=== PATIENT | female | born 1985 | race Caucasian/White ===

== ENCOUNTER 2019-01-19 18:22 | Emergency (ER) | payer SELFPAY ==
[~2019-01-19] VITALS: Ht 147.3 cm; Wt 73.0 kg
[2019-01-19 20:45] LABS: CLARITY URINE TURBID (CLEAR); COLOR URINE YELLOW (YELLOW); KETONES URINE 3+ (NEGATIVE); LEUKOCYTE ESTERASE URINE 2+ (NEGATIVE); NITRITE URINE NEGATIVE (NEGATIVE); OCCULT BLOOD URINE 3+ (NEGATIVE); PROTEIN URINE 3+ (NEGATIVE); SPECIFIC GRAVITY URINE 1.043 (1.005-1.030); UROBILINOGEN URINE 0.2 E.U./dL (0.2-1.0)
[2019-01-19] MEDS ORDERED: KETOROLAC 30MG/ML VIAL IV STA (20:46)
[2019-01-19] MEDS ORDERED: SODIUM CHLORIDE 0.9% 1,000 ML IV ONE (21:00)
[2019-01-19] MEDS ORDERED: MORPHINE SULFATE 4 MG/ML CPJ (NOT FOR IM USE) IV ONE (21:00)
[2019-01-19 21:30] LABS: BASOPHILS % 0.3 % (0.0-2.0); EOSINOPHILS % 0.1 % (0.0-5.0); HEMATOCRIT. 43.5 % (36.0-48.0); HEMOGLOBIN. 14.9 g/dL (12.0-16.0); MEAN CORPUSCULAR HEMOGLOBIN 30.5 pg (28.0-32.0); MEAN CORPUSCULAR VOLUME 88.7 fL (81.0-99.0); NEUTROPHILS % 80.6 % (40.0-76.0); PLATELET 230 x1000/uL (130-400); RED BLOOD CELL COUNT 4.91 mill/uL (4.2-5.4); RED CELL DISTRIBUTION WIDTH 13.3 % (11.6-14.6)
[2019-01-19 21:33] LABS: CHLORIDE 104 mEq/L (98-107)
[2019-01-19] MEDS ORDERED: CEFTRIAXONE 1 G PREMIX 50 ML IV ONE (22:15)
[2019-01-19] MEDS ORDERED: IOHEXOL-300 100 ML BOTTLE ONE (23:27)
[2019-01-20] MEDS ORDERED: INSULIN REGULAR (HUMULIN R) UD 100 UNITS/ML SYR IV ONE (00:30)
[2019-01-20] MEDS ORDERED: INSULIN REGULAR (HUMULIN R) 300UNITS/3ML IV NR (01:30)
[2019-01-20 01:36] VITALS: BP 110/69
== END 2019-01-20 01:37 | disposition home or self-care (01) ==
LOC: ER 18:22
DX: R10.31 Right lower quadrant pain (principal); R10.32 Left lower quadrant pain; R30.0 Dysuria; E11.9 Type 2 diabetes mellitus without complications; Z86.73 Personal history of transient ischemic attack (TIA), and cerebral infarction without residual deficits
CPT/HCPCS: 36415; 74177; 80053; 81003; 81025; 82962; 83605; 83690; 85025; 87077; 87086; 87186; 93005; 96365; 96375; 99284; J0696; J1815; J1885; J2270; J7030; Q9967; Z7610

== ENCOUNTER 2019-02-03 20:28 | Emergency (ER) | payer SELFPAY ==
[~2019-02-03] VITALS: Ht 147.3 cm; Wt 73.0 kg
[2019-02-04] MEDS ORDERED: SODIUM CHLORIDE 0.9% 1,000 ML IV ONE (03:18)
[2019-02-04] MEDS ORDERED: MORPHINE SULFATE 2 MG/ML CPJ (NOT FOR IM USE) IV ONE (03:30)
[2019-02-04] MEDS ORDERED: ONDANSETRON HCL 4MG/2ML INJ IV ONE (03:30)
[2019-02-04 03:32] LABS: BASOPHILS % 0.7 % (0.0-2.0); EOSINOPHILS % 0.1 % (0.0-5.0); HEMATOCRIT. 40.9 % (36.0-48.0); HEMOGLOBIN. 14.1 g/dL (12.0-16.0); LYMPHOCYTES % 17.1 % (20.0-50.0); MEAN CORPUSCULAR HEMOGLOBIN 30.3 pg (28.0-32.0); MEAN CORPUSCULAR VOLUME 87.8 fL (81.0-99.0); MEAN PLATELET VOLUME 9.6 fl (7.4-10.4); MONOCYTES % 6.5 % (2.0-8.0); NEUTROPHILS % 75.6 % (40.0-76.0); PLATELET 252 x1000/uL (130-400); RED BLOOD CELL COUNT 4.66 mill/uL (4.2-5.4); RED CELL DISTRIBUTION WIDTH 13.6 % (11.6-14.6)
[2019-02-04 03:38] LABS: CHLORIDE 106 mEq/L (98-107)
[2019-02-04 03:45] LABS: BETA HYDROXYBUTYRATE 1.2 mMol/L (0.0-0.3)
[2019-02-04 03:46] LABS: HCG SCREEN NEGATIVE
[2019-02-04] MEDS ORDERED: MORPHINE SULFATE 4 MG/ML CPJ (NOT FOR IM USE) IV NR (04:00)
[2019-02-04 04:35] LABS: CLARITY URINE TURBID (CLEAR); COLOR URINE YELLOW (YELLOW); KETONES URINE 1+ (NEGATIVE); LEUKOCYTE ESTERASE URINE 2+ (NEGATIVE); NITRITE URINE NEGATIVE (NEGATIVE); OCCULT BLOOD URINE 3+ (NEGATIVE); PH URINE 5.5 (4.5-8.0); PROTEIN URINE 1+ (NEGATIVE); SPECIFIC GRAVITY URINE 1.031 (1.005-1.030); UROBILINOGEN URINE 0.2 E.U./dL (0.2-1.0)
[2019-02-04] MEDS ORDERED: CEFTRIAXONE 1 G PREMIX 50 ML IV ONE (05:15)
[2019-02-04] MEDS ORDERED: INSULIN REGULAR (HUMULIN R) 300UNITS/3ML SUBCUT ONE (06:00)
[2019-02-04] MEDS ORDERED: POTASSIUM CHLORIDE 20MEQ TABLET SR PO ONE (06:00)
[2019-02-04] MEDS ORDERED: KETOROLAC 30MG/ML VIAL IV ONE (06:30)
[2019-02-04 09:34] VITALS: BP 120/78
== END 2019-02-04 09:37 | disposition home or self-care (01) ==
LOC: ER 20:28
DX: N12 Tubulo-interstitial nephritis, not specified as acute or chronic (principal); E11.65 Type 2 diabetes mellitus with hyperglycemia
CPT/HCPCS: 36415; 80053; 81003; 82010; 82962; 83690; 84703; 85025; 85610; 87077; 87086; 87186; 96361; 96365; 96372; 96375; 99283; J0696; J1815; J1885; J2270; J2405; J7030

== ENCOUNTER 2020-01-26 11:35 | Emergency (ER) | payer MEDICAID ==
[~2020-01-26] VITALS: Ht 162.6 cm; Wt 68.2 kg
[2020-01-26] MEDS ORDERED: ACETAMINOPHEN 325MG TABLET PO STA (12:26)
[2020-01-26 12:47] LABS: BASOPHILS % 0.3 % (0.0-2.0); EOSINOPHILS % 0.1 % (0.0-5.0); HEMATOCRIT. 48.9 % (36.0-48.0); HEMOGLOBIN. 17.1 g/dL (12.0-16.0); LYMPHOCYTES % 19.9 % (20.0-50.0); MEAN CORPUSCULAR HEMOGLOBIN 30.6 pg (28.0-32.0); MEAN CORPUSCULAR VOLUME 87.6 fL (81.0-99.0); MEAN PLATELET VOLUME 9.7 fl (7.4-10.4); MONOCYTES % 10.3 % (2.0-8.0); NEUTROPHILS % 69.4 % (40.0-76.0); PLATELET 211 x1000/uL (130-400); RED BLOOD CELL COUNT 5.58 mill/uL (4.2-5.4); RED CELL DISTRIBUTION WIDTH 13.6 % (11.6-14.6)
[2020-01-26 12:48] LABS: CLARITY URINE CLEAR (CLEAR); COLOR URINE YELLOW (YELLOW); KETONES URINE 4+ (NEGATIVE); LEUKOCYTE ESTERASE URINE NEGATIVE (NEGATIVE); NITRITE URINE NEGATIVE (NEGATIVE); OCCULT BLOOD URINE NEGATIVE (NEGATIVE); PH URINE 5.5 (4.5-8.0); PROTEIN URINE 3+ (NEGATIVE); SPECIFIC GRAVITY URINE 1.049 (1.005-1.030)
[2020-01-26 12:53] LABS: CHLORIDE 103 mEq/L (98-107)
[2020-01-26 13:15] LABS: HCG SCREEN NEGATIVE
[2020-01-26] MEDS ORDERED: CEFTRIAXONE 1 G PREMIX 50 ML IV ONE (14:00)
[2020-01-26] MEDS ORDERED: FLUCONAZOLE 100MG TABLET PO ONE (14:00)
[2020-01-26] MEDS ORDERED: KETOROLAC 30MG/ML VIAL IV ONE (14:00)
[2020-01-26] MEDS ORDERED: FLUCONAZOLE 150MG TABLET PO ONE (14:15)
[2020-01-26 15:15] VITALS: BP 115/80
== END 2020-01-26 15:37 | disposition home or self-care (01) ==
LOC: ER 12:10
DX: N39.0 Urinary tract infection, site not specified (principal); B37.9 Candidiasis, unspecified; G43.909 Migraine, unspecified, not intractable, without status migrainosus; G44.89 Other headache syndrome; E11.9 Type 2 diabetes mellitus without complications; R00.0 Tachycardia, unspecified
CPT/HCPCS: 36415; 80053; 81003; 81025; 84703; 85025; 87040; 87086; 93005; 96365; 96375; 99284; J0696; J1885

== ENCOUNTER 2020-01-28 20:38 | Inpatient (IN) | payer MEDICAID, OTHER ==
[~2020-01-28] VITALS: Ht 149.9 cm; Wt 65.3 kg
[2020-01-28] MEDS ORDERED: ACETAMINOPHEN 325MG TABLET PO STA (23:05)
[2020-01-28] MEDS ORDERED: KETOROLAC 30MG/ML VIAL IV STA (23:05)
[2020-01-28] MEDS ORDERED: ONDANSETRON HCL 4MG/2ML INJ IV STA (23:05)
[2020-01-28] MEDS ORDERED: PIPERACILLIN/TAZ 3.375G PREMIX 50 ML IV ONE (23:15)
[2020-01-28] MEDS ORDERED: VANCOMYCIN 1 G PREMIX 200 ML IV ONE (23:15)
[2020-01-28] MEDS ORDERED: DIPHENHYDRAMINE 50MG/ML VIAL IV ONE (23:15)
[2020-01-28] MEDS ORDERED: PROCHLORPERAZINE 10MG/2ML VIAL IV ONE (23:15)
[2020-01-28 23:32] LABS: BASOPHILS % 0.2 % (0.0-2.0); HEMATOCRIT. 43.4 % (36.0-48.0); HEMOGLOBIN. 15.4 g/dL (12.0-16.0); MEAN CORPUSCULAR HEMOGLOBIN 30.8 pg (28.0-32.0); MEAN CORPUSCULAR VOLUME 86.7 fL (81.0-99.0); MONOCYTES % 5.4 % (2.0-8.0); NEUTROPHILS % 80.4 % (40.0-76.0); PLATELET 180 x1000/uL (130-400); RED CELL DISTRIBUTION WIDTH 13.6 % (11.6-14.6)
[2020-01-28 23:39] LABS: D-DIMER 0.53 mg/L FEU (<0.50); INR 0.9; PROTHROMBIN TIME 10.2 sec (9.6-11.0)
[2020-01-28 23:41] LABS: CHLORIDE 105 mEq/L (98-107)
[2020-01-29 01:27] LABS: CLARITY URINE CLEAR (CLEAR); COLOR URINE YELLOW (YELLOW); KETONES URINE 3+ (NEGATIVE); LEUKOCYTE ESTERASE URINE NEGATIVE (NEGATIVE); NITRITE URINE NEGATIVE (NEGATIVE); OCCULT BLOOD URINE NEGATIVE (NEGATIVE); PH URINE 5.5 (4.5-8.0); PROTEIN URINE 2+ (NEGATIVE); SPECIFIC GRAVITY URINE 1.047 (1.005-1.030); UROBILINOGEN URINE 0.2 E.U./dL (0.2-1.0)
[2020-01-29 01:53] LABS: CREATINE KINASE 31 IU/L (26-192)
[2020-01-29 08:39] VITALS: BP 98/60
[2020-01-29 08:40] VITALS: BP 98/60
[2020-01-29] MEDS ORDERED: ACETAMINOPHEN 325MG TABLET PO PRN ×2 (09:45)
[2020-01-29] MEDS ORDERED: MAGNESIUM/ALUMINUM HYDROXIDE/SIMETHICONE 30ML UDC PO PRN ×2 (09:45→15:30)
[2020-01-29] MEDS ORDERED: GUAIFENESIN 200MG/10ML SUGAR FREE UDC PO PRN (09:45)
[2020-01-29 12:00] VITALS: BP 117/76
[2020-01-29] MEDS: SODIUM CHLORIDE 0.9% INJ 3ML FLUSH IVF SCH ×2 (14:00→21:29)
[2020-01-29] MEDS ORDERED: DEXTROSE 50% WATER 50ML SYRINGE IV PRN (15:30)
[2020-01-29] MEDS ORDERED: ZOLPIDEM TARTRATE 5MG TABLET PO PRN ×2 (15:30→21:00)
[2020-01-29] MEDS ORDERED: ONDANSETRON HCL 4MG/2ML INJ IV PRN (15:30)
[2020-01-29 16:00] VITALS: BP 103/61
[2020-01-29] MEDS: BENZONATATE 100MG CAPSULE PO SCH (17:25)
[2020-01-29] MEDS: BLOOD SUGAR DIAGNOSTIC STRIP TEST SCH ×2 (17:25→21:28)
[2020-01-29] MEDS: ACETAMINOPHEN 325MG TABLET PO PRN ×2 (17:26→21:51)
[2020-01-29] MEDS ORDERED: AZITHROMYCIN 500 MG in DEXT 5% WATER 250 ML IV NR (18:00)
[2020-01-29] MEDS: INSULIN LISPRO 100 UNITS/ML SUBCUT SCH ×2 (18:28→21:28)
[2020-01-29 20:00] VITALS: BP 97/63
[2020-01-29] MEDS: GUAIFENESIN 600MG ER TABLET PO SCH (21:28)
[2020-01-29] MEDS ORDERED: SODIUM CHLORIDE 0.9% INJ 3ML FLUSH IVF SCH (22:00)
[2020-01-30] VITALS: BP 104/57
[2020-01-30] MEDS: BENZONATATE 100MG CAPSULE PO SCH ×3 (02:29→18:22)
[2020-01-30] MEDS: ONDANSETRON HCL 4MG/2ML INJ IV PRN ×3 (02:35→18:40)
[2020-01-30 04:00] VITALS: BP 160/93
[2020-01-30] MEDS: SODIUM CHLORIDE 0.9% INJ 3ML FLUSH IVF SCH ×3 (06:51→21:48)
[2020-01-30] MEDS: ACETAMINOPHEN 325MG TABLET PO PRN ×3 (07:06→21:49)
[2020-01-30] MEDS: BLOOD SUGAR DIAGNOSTIC STRIP TEST SCH ×4 (07:40→21:48)
[2020-01-30 08:00] VITALS: BP 123/80
[2020-01-30] MEDS: INSULIN LISPRO 100 UNITS/ML SUBCUT SCH ×4 (08:10→21:48)
[2020-01-30] MEDS: AZITHROMYCIN 250 MG in DEXT 5% WATER 250 ML IV SCH (10:51)
[2020-01-30] MEDS: GUAIFENESIN 600MG ER TABLET PO SCH ×2 (10:51→21:47)
[2020-01-30 12:00] VITALS: BP 102/56
[2020-01-30] MEDS: INSULIN GLARGINE UD 100 UNITS/ML SYR SUBCUT SCH (13:20)
[2020-01-30 16:00] VITALS: BP 86/58
[2020-01-30] MEDS: ZINC SULFATE 220 MG ( 50 ) CAPSULE PO SCH (18:22)
[2020-01-30] MEDS: THIAMINE HCL 100MG TABLET PO SCH (18:22)
[2020-01-30] MEDS: ASCORBIC ACID 500 MG TABLET PO SCH (18:23)
[2020-01-30] MEDS: HYDROXYCHLOROQUINE SULFATE 200MG TABLET PO SCH (18:23)
[2020-01-30 20:00] VITALS: BP 105/60
[2020-01-31] VITALS (7 sets, daily range): BP systolic 91–118; BP diastolic 50–75
[2020-01-31] MEDS: ONDANSETRON HCL 4MG/2ML INJ IV PRN ×3 (00:32→17:49)
[2020-01-31] MEDS: ALBUTEROL 6.7GM HFA INHALER ORI SCH ×4 (00:32→17:21)
[2020-01-31] MEDS: BENZONATATE 100MG CAPSULE PO SCH ×3 (02:08→17:22)
[2020-01-31] MEDS: SODIUM CHLORIDE 0.9% INJ 3ML FLUSH IVF SCH ×3 (05:48→22:32)
[2020-01-31 06:40] LABS: BASOPHILS % 0.2 % (0.0-2.0); HEMATOCRIT. 39.6 % (36.0-48.0); HEMOGLOBIN. 14.1 g/dL (12.0-16.0); LYMPHOCYTES % 20.6 % (20.0-50.0); MEAN CORPUSCULAR HEMOGLOBIN 30.7 pg (28.0-32.0); MEAN CORPUSCULAR VOLUME 86.1 fL (81.0-99.0); MEAN PLATELET VOLUME 9.4 fl (7.4-10.4); MONOCYTES % 8.2 % (2.0-8.0); PLATELET 188 x1000/uL (130-400); RED CELL DISTRIBUTION WIDTH 13.5 % (11.6-14.6)
[2020-01-31 06:44] LABS: CHLORIDE 109 mEq/L (98-107)
[2020-01-31] MEDS: ACETAMINOPHEN 325MG TABLET PO PRN ×3 (06:47→22:19)
[2020-01-31 06:56] LABS: CREATINE KINASE MB FRACTION < 1.0 ng/mL (0.5-3.6)
[2020-01-31] MEDS: BLOOD SUGAR DIAGNOSTIC STRIP TEST SCH ×4 (07:40→22:31)
[2020-01-31 07:51] LABS: HCG SCREEN NEGATIVE
[2020-01-31] MEDS: ZINC SULFATE 220 MG ( 50 ) CAPSULE PO SCH (09:39)
[2020-01-31] MEDS: THIAMINE HCL 100MG TABLET PO SCH ×2 (09:39→17:22)
[2020-01-31] MEDS: GUAIFENESIN 600MG ER TABLET PO SCH ×2 (09:39→22:19)
[2020-01-31] MEDS: ASCORBIC ACID 500 MG TABLET PO SCH ×2 (09:39→17:22)
[2020-01-31] MEDS: HYDROXYCHLOROQUINE SULFATE 200MG TABLET PO SCH ×2 (09:39→17:22)
[2020-01-31] MEDS: INSULIN LISPRO 100 UNITS/ML SUBCUT SCH ×4 (09:40→22:30)
[2020-01-31] MEDS: AZITHROMYCIN 250 MG in DEXT 5% WATER 250 ML IV SCH (09:45)
[2020-01-31] MEDS ORDERED: POTASSIUM CHLORIDE 20MEQ TABLET SR PO SCH (10:30)
[2020-01-31] MEDS: INSULIN GLARGINE UD 100 UNITS/ML SYR SUBCUT SCH (11:22)
[2020-01-31] MEDS: POTASSIUM CHLORIDE 20MEQ TABLET SR PO SCH ×2 (14:45→14:59)
[2020-02-01] VITALS: BP 127/71
[2020-02-01] MEDS: BENZONATATE 100MG CAPSULE PO SCH ×3 (00:31→18:00)
[2020-02-01] MEDS: ALBUTEROL 6.7GM HFA INHALER ORI SCH ×4 (00:33→18:00)
[2020-02-01 04:00] VITALS: BP 120/78
[2020-02-01] MEDS: BLOOD SUGAR DIAGNOSTIC STRIP TEST SCH ×4 (05:57→21:01)
[2020-02-01] MEDS: SODIUM CHLORIDE 0.9% INJ 3ML FLUSH IVF SCH ×3 (05:57→21:01)
[2020-02-01] MEDS: ACETAMINOPHEN 325MG TABLET PO PRN (05:58)
[2020-02-01] MEDS: ONDANSETRON HCL 4MG/2ML INJ IV PRN ×2 (05:58→11:45)
[2020-02-01 07:04] LABS: CHLORIDE 107 mEq/L (98-107)
[2020-02-01 08:00] VITALS: BP 88/57
[2020-02-01] MEDS: THIAMINE HCL 100MG TABLET PO SCH ×2 (09:37→18:58)
[2020-02-01] MEDS: ASCORBIC ACID 500 MG TABLET PO SCH ×2 (09:37→18:57)
[2020-02-01] MEDS: HYDROXYCHLOROQUINE SULFATE 200MG TABLET PO SCH ×2 (09:37→18:56)
[2020-02-01] MEDS: ZINC SULFATE 220 MG ( 50 ) CAPSULE PO SCH (09:37)
[2020-02-01] MEDS: GUAIFENESIN 600MG ER TABLET PO SCH ×2 (09:37→21:01)
[2020-02-01] MEDS: INSULIN LISPRO 100 UNITS/ML SUBCUT SCH ×4 (09:39→21:00)
[2020-02-01] MEDS: AZITHROMYCIN 250 MG in DEXT 5% WATER 250 ML IV SCH (09:42)
[2020-02-01] MEDS: INSULIN GLARGINE UD 100 UNITS/ML SYR SUBCUT SCH ×2 (11:47→21:58)
[2020-02-01 12:00] VITALS: BP 95/60
[2020-02-01 16:00] VITALS: BP 103/62
[2020-02-01] MEDS ORDERED: BISACODYL 10MG SUPP PR PRN (17:00)
[2020-02-01] MEDS: HYDROCODONE/ACETAMINOPHEN 5/325MG TABLET PO PRN (18:56)
[2020-02-01] MEDS: GUAIFENESIN-DM 200MG-20MG/10ML UDC PO PRN (18:57)
[2020-02-01 20:00] VITALS: BP 101/58
[2020-02-02] VITALS: BP 111/63
[2020-02-02] MEDS: ALBUTEROL 6.7GM HFA INHALER ORI SCH ×4 (00:40→17:34)
[2020-02-02] MEDS: BENZONATATE 100MG CAPSULE PO SCH ×3 (02:57→17:36)
[2020-02-02 04:00] VITALS: BP 99/59
[2020-02-02] MEDS: SODIUM CHLORIDE 0.9% INJ 3ML FLUSH IVF SCH ×3 (05:29→22:00)
[2020-02-02] MEDS: ACETAMINOPHEN 325MG TABLET PO PRN ×3 (05:29→22:01)
[2020-02-02] MEDS: BLOOD SUGAR DIAGNOSTIC STRIP TEST SCH ×4 (07:40→20:34)
[2020-02-02] MEDS: INSULIN LISPRO 100 UNITS/ML SUBCUT SCH ×4 (08:10→21:00)
[2020-02-02] MEDS: GUAIFENESIN 600MG ER TABLET PO SCH ×2 (08:20→20:34)
[2020-02-02] MEDS: THIAMINE HCL 100MG TABLET PO SCH ×2 (08:20→17:33)
[2020-02-02] MEDS: ASCORBIC ACID 500 MG TABLET PO SCH ×2 (08:20→17:33)
[2020-02-02] MEDS: ZINC SULFATE 220 MG ( 50 ) CAPSULE PO SCH (08:20)
[2020-02-02] MEDS: AZITHROMYCIN 250 MG in DEXT 5% WATER 250 ML IV SCH (08:21)
[2020-02-02] MEDS: HYDROXYCHLOROQUINE SULFATE 200MG TABLET PO SCH ×2 (08:22→17:33)
[2020-02-02] MEDS: INSULIN GLARGINE UD 100 UNITS/ML SYR SUBCUT SCH ×2 (10:24→22:02)
[2020-02-02] MEDS: HYDROCODONE/ACETAMINOPHEN 5/325MG TABLET PO PRN (10:37)
[2020-02-02 16:00] VITALS: BP 110/74
[2020-02-02 20:00] VITALS: BP 90/63
[2020-02-02 21:07] LABS: BG BASE EXCESS -2.7 mmol/L (-2.0-2.0); BG CARBOXYHEMOGLOBIN 0.1 % (0.5-1.5); BG DEOXYHEMOGLOBIN 7.6 % (0.0-5.0); BG FRACTION INSPIRED OXYGEN 28; BG HCO3 ACT 20.4 mmol/L (22.0-26.0); BG METHEMOGLOBIN 0.2 % (0.0-1.5); BG OXYGEN SATURATION 92.4 % (92.0-98.5); BG OXYHEMOGLOBIN 92.1 % (94.0-97.0); BG PH 7.437 (7.350-7.450); BG PO2 61.2 mmHg (75.0-100.0); BG SAMPLE SITE RIGHT RADIAL; BG TOTAL HEMOGLOBIN 13.5 g/dL (12.0-18.0); BG VENT MODE NASAL CANNULA
[2020-02-03] VITALS: BP 99/61
[2020-02-03] MEDS: BENZONATATE 100MG CAPSULE PO SCH ×3 (01:24→18:55)
[2020-02-03 04:00] VITALS: BP 99/68
[2020-02-03] MEDS: ALBUTEROL 6.7GM HFA INHALER ORI SCH ×2 (06:00)
[2020-02-03] MEDS: SODIUM CHLORIDE 0.9% INJ 3ML FLUSH IVF SCH ×3 (06:14→21:40)
[2020-02-03] MEDS: HYDROCODONE/ACETAMINOPHEN 5/325MG TABLET PO PRN ×2 (06:15→22:16)
[2020-02-03] MEDS: BLOOD SUGAR DIAGNOSTIC STRIP TEST SCH ×4 (06:40→21:00)
[2020-02-03 08:00] VITALS: BP 139/75
[2020-02-03] MEDS: INSULIN LISPRO 100 UNITS/ML SUBCUT SCH ×3 (08:10→21:00)
[2020-02-03] MEDS ORDERED: INSULIN GLARGINE UD 100 UNITS/ML SYR SUBCUT SCH (10:00)
[2020-02-03] MEDS: THIAMINE HCL 100MG TABLET PO SCH ×2 (11:45→17:00)
[2020-02-03] MEDS: ASCORBIC ACID 500 MG TABLET PO SCH ×2 (11:45→17:00)
[2020-02-03] MEDS: ZINC SULFATE 220 MG ( 50 ) CAPSULE PO SCH (11:45)
[2020-02-03] MEDS: HYDROXYCHLOROQUINE SULFATE 200MG TABLET PO SCH ×2 (11:46→18:53)
[2020-02-03] MEDS: GUAIFENESIN 600MG ER TABLET PO SCH ×2 (11:46→21:39)
[2020-02-03 12:00] VITALS: BP 130/69
[2020-02-03] MEDS: ONDANSETRON HCL 4MG/2ML INJ IV PRN (14:33)
[2020-02-03] MEDS ORDERED: DIPHENHYDRAMINE 50MG/ML VIAL IV PRN (14:45)
[2020-02-03 16:00] VITALS: BP 129/79
[2020-02-03 20:00] VITALS: BP 146/83
[2020-02-03] MEDS: INSULIN GLARGINE UD 100 UNITS/ML SYR SUBCUT SCH (22:00)
[2020-02-04] VITALS: BP 140/79
[2020-02-04] MEDS: BENZONATATE 100MG CAPSULE PO SCH ×3 (02:52→18:18)
[2020-02-04 04:00] VITALS: BP 120/84
[2020-02-04] MEDS: SODIUM CHLORIDE 0.9% INJ 3ML FLUSH IVF SCH ×3 (05:27→21:13)
[2020-02-04] MEDS: BLOOD SUGAR DIAGNOSTIC STRIP TEST SCH ×4 (06:44→21:14)
[2020-02-04 08:00] VITALS: BP 121/80
[2020-02-04] MEDS: INSULIN LISPRO 100 UNITS/ML SUBCUT SCH ×4 (08:10→21:00)
[2020-02-04] MEDS: ASCORBIC ACID 500 MG TABLET PO SCH ×2 (09:57→18:17)
[2020-02-04] MEDS: GUAIFENESIN 600MG ER TABLET PO SCH ×2 (09:58→21:12)
[2020-02-04] MEDS: ZINC SULFATE 220 MG ( 50 ) CAPSULE PO SCH (09:58)
[2020-02-04] MEDS: THIAMINE HCL 100MG TABLET PO SCH ×2 (09:58→18:17)
[2020-02-04] MEDS: HYDROXYCHLOROQUINE SULFATE 200MG TABLET PO SCH (09:58)
[2020-02-04] MEDS: INSULIN GLARGINE UD 100 UNITS/ML SYR SUBCUT SCH ×2 (10:46→21:13)
[2020-02-04 12:00] VITALS: BP 140/85
[2020-02-04 16:00] VITALS: BP 132/82
[2020-02-04] MEDS: HYDROCODONE/ACETAMINOPHEN 5/325MG TABLET PO PRN (18:45)
[2020-02-04 20:00] VITALS: BP 119/82
[2020-02-05] VITALS (7 sets, daily range): BP systolic 104–140; BP diastolic 68–77
[2020-02-05] MEDS: BENZONATATE 100MG CAPSULE PO SCH ×3 (01:33→17:31)
[2020-02-05] MEDS: HYDROCODONE/ACETAMINOPHEN 5/325MG TABLET PO PRN (01:42)
[2020-02-05] MEDS: SODIUM CHLORIDE 0.9% INJ 3ML FLUSH IVF SCH ×3 (06:21→20:23)
[2020-02-05] MEDS: BLOOD SUGAR DIAGNOSTIC STRIP TEST SCH ×4 (07:40→20:24)
[2020-02-05] MEDS: INSULIN LISPRO 100 UNITS/ML SUBCUT SCH ×4 (07:54→20:23)
[2020-02-05] MEDS: THIAMINE HCL 100MG TABLET PO SCH ×2 (09:11→17:31)
[2020-02-05] MEDS: GUAIFENESIN-DM 200MG-20MG/10ML UDC PO PRN (09:11)
[2020-02-05] MEDS: ASCORBIC ACID 500 MG TABLET PO SCH ×2 (09:31→17:31)
[2020-02-05] MEDS: ZINC SULFATE 220 MG ( 50 ) CAPSULE PO SCH (09:32)
[2020-02-05] MEDS: GUAIFENESIN 600MG ER TABLET PO SCH ×2 (09:32→20:23)
[2020-02-05] MEDS: INSULIN GLARGINE UD 100 UNITS/ML SYR SUBCUT SCH ×2 (10:25→22:47)
[2020-02-05] MEDS: ONDANSETRON HCL 4MG/2ML INJ IV PRN (11:19)
[2020-02-06] VITALS: BP 115/68
[2020-02-06] MEDS: ALBUTEROL 6.7GM HFA INHALER ORI SCH (02:17)
[2020-02-06] MEDS: BENZONATATE 100MG CAPSULE PO SCH ×3 (03:03→17:52)
[2020-02-06 04:00] VITALS: BP 106/70
[2020-02-06] MEDS: SODIUM CHLORIDE 0.9% INJ 3ML FLUSH IVF SCH (06:27)
[2020-02-06] MEDS: BLOOD SUGAR DIAGNOSTIC STRIP TEST SCH ×4 (07:43→19:59)
[2020-02-06 08:00] VITALS: BP 106/66
[2020-02-06] MEDS: INSULIN LISPRO 100 UNITS/ML SUBCUT SCH ×4 (08:10→21:25)
[2020-02-06] MEDS: ZINC SULFATE 220 MG ( 50 ) CAPSULE PO SCH (09:58)
[2020-02-06] MEDS: GUAIFENESIN 600MG ER TABLET PO SCH ×2 (09:58→21:20)
[2020-02-06] MEDS: INSULIN GLARGINE UD 100 UNITS/ML SYR SUBCUT SCH ×2 (09:59→21:25)
[2020-02-06 12:00] VITALS: BP 122/71
[2020-02-06 16:00] VITALS: BP 122/80
[2020-02-06 20:00] VITALS: BP 125/81
[2020-02-06] MEDS: ENOXAPARIN 80MG/0.8ML SYR SUBCUT SCH (21:19)
[2020-02-07] VITALS: BP 113/77
[2020-02-07] MEDS: BENZONATATE 100MG CAPSULE PO SCH ×3 (02:20→18:25)
[2020-02-07 04:00] VITALS: BP 101/69
[2020-02-07] MEDS: BLOOD SUGAR DIAGNOSTIC STRIP TEST SCH ×4 (05:39→19:58)
[2020-02-07] MEDS: SODIUM CHLORIDE 0.9% INJ 3ML FLUSH IVF SCH ×3 (05:59→21:35)
[2020-02-07 08:00] VITALS: BP_SYST 109; BP_SYST 120; BP_DIAS 70; BP_DIAS 75
[2020-02-07] MEDS: ENOXAPARIN 80MG/0.8ML SYR SUBCUT SCH ×2 (09:09→21:00)
[2020-02-07] MEDS: INSULIN LISPRO 100 UNITS/ML SUBCUT SCH ×4 (09:09→21:31)
[2020-02-07] MEDS: GUAIFENESIN 600MG ER TABLET PO SCH ×2 (09:09→21:26)
[2020-02-07] MEDS: ZINC SULFATE 220 MG ( 50 ) CAPSULE PO SCH (09:10)
[2020-02-07] MEDS: INSULIN GLARGINE UD 100 UNITS/ML SYR SUBCUT SCH ×2 (10:40→21:31)
[2020-02-07 12:00] VITALS: BP 121/81
[2020-02-07] MEDS: ACETAMINOPHEN 325MG TABLET PO PRN (12:04)
[2020-02-07 16:00] VITALS: BP 139/87
[2020-02-07 20:00] VITALS: BP 143/89
[2020-02-08] VITALS: BP 114/78
[2020-02-08] MEDS: BENZONATATE 100MG CAPSULE PO SCH ×4 (02:00→17:18)
[2020-02-08 04:00] VITALS: BP 114/74
[2020-02-08] MEDS: SODIUM CHLORIDE 0.9% INJ 3ML FLUSH IVF SCH ×3 (06:03→21:44)
[2020-02-08] MEDS: BLOOD SUGAR DIAGNOSTIC STRIP TEST SCH ×4 (06:05→21:44)
[2020-02-08 07:50] LABS: BASOPHILS % 0.7 % (0.0-2.0); EOSINOPHILS % 2.3 % (0.0-5.0); HEMATOCRIT. 41.1 % (36.0-48.0); LYMPHOCYTES % 35.9 % (20.0-50.0); MEAN CORPUSCULAR HEMOGLOBIN 29.9 pg (28.0-32.0); MEAN CORPUSCULAR VOLUME 87.8 fL (81.0-99.0); MEAN PLATELET VOLUME 8.4 fl (7.4-10.4); MONOCYTES % 14.6 % (2.0-8.0); NEUTROPHILS % 46.5 % (40.0-76.0); PLATELET 438 x1000/uL (130-400); RED BLOOD CELL COUNT 4.68 mill/uL (4.2-5.4); RED CELL DISTRIBUTION WIDTH 13.1 % (11.6-14.6)
[2020-02-08 07:54] LABS: CHLORIDE 106 mEq/L (98-107)
[2020-02-08 08:00] VITALS: BP 116/78
[2020-02-08] MEDS: ENOXAPARIN 80MG/0.8ML SYR SUBCUT SCH ×3 (09:10→21:43)
[2020-02-08] MEDS: ZINC SULFATE 220 MG ( 50 ) CAPSULE PO SCH (09:10)
[2020-02-08] MEDS: GUAIFENESIN 600MG ER TABLET PO SCH ×2 (09:10→21:43)
[2020-02-08] MEDS: INSULIN LISPRO 100 UNITS/ML SUBCUT SCH ×4 (09:12→21:44)
[2020-02-08] MEDS: INSULIN GLARGINE UD 100 UNITS/ML SYR SUBCUT SCH ×2 (09:12→21:44)
[2020-02-08 12:00] VITALS: BP 106/66
[2020-02-08] MEDS: ALBUTEROL 6.7GM HFA INHALER ORI SCH ×3 (12:00→23:50)
[2020-02-08 16:00] VITALS: BP 113/76
[2020-02-08] MEDS: ACETAMINOPHEN 325MG TABLET PO PRN (17:19)
[2020-02-08 20:00] VITALS: BP 123/74
[2020-02-09] VITALS: BP 114/75
[2020-02-09] MEDS: BENZONATATE 100MG CAPSULE PO SCH ×3 (03:53→17:26)
[2020-02-09 04:00] VITALS: BP 114/73
[2020-02-09] MEDS: ALBUTEROL 6.7GM HFA INHALER ORI SCH ×4 (05:18→23:06)
[2020-02-09] MEDS: BLOOD SUGAR DIAGNOSTIC STRIP TEST SCH ×4 (07:28→21:12)
[2020-02-09 08:00] VITALS: BP 113/80
[2020-02-09] MEDS: SODIUM CHLORIDE 0.9% INJ 3ML FLUSH IVF SCH ×3 (10:08→21:19)
[2020-02-09] MEDS: INSULIN GLARGINE UD 100 UNITS/ML SYR SUBCUT SCH ×2 (10:09→21:18)
[2020-02-09] MEDS: INSULIN LISPRO 100 UNITS/ML SUBCUT SCH ×4 (10:10→21:19)
[2020-02-09] MEDS: GUAIFENESIN 600MG ER TABLET PO SCH ×2 (10:11→21:18)
[2020-02-09] MEDS: ZINC SULFATE 220 MG ( 50 ) CAPSULE PO SCH (10:11)
[2020-02-09] MEDS: ENOXAPARIN 80MG/0.8ML SYR SUBCUT SCH ×2 (10:11→21:18)
[2020-02-09 12:00] VITALS: BP 115/76
[2020-02-09] MEDS: METFORMIN HCL 500MG TABLET PO SCH ×2 (12:54→17:26)
[2020-02-09 16:00] VITALS: BP 117/72
[2020-02-09 20:00] VITALS: BP 132/82
[2020-02-10] VITALS: BP 104/74
[2020-02-10] MEDS: BENZONATATE 100MG CAPSULE PO SCH ×3 (03:18→18:45)
[2020-02-10 04:00] VITALS: BP 107/64
[2020-02-10] MEDS: ALBUTEROL 6.7GM HFA INHALER ORI SCH ×4 (05:26→23:37)
[2020-02-10] MEDS: SODIUM CHLORIDE 0.9% INJ 3ML FLUSH IVF SCH ×3 (06:00→21:43)
[2020-02-10] MEDS: BLOOD SUGAR DIAGNOSTIC STRIP TEST SCH ×4 (07:40→21:43)
[2020-02-10 08:00] VITALS: BP 113/71
[2020-02-10] MEDS: ENOXAPARIN 80MG/0.8ML SYR SUBCUT SCH ×2 (08:36→21:43)
[2020-02-10] MEDS: ZINC SULFATE 220 MG ( 50 ) CAPSULE PO SCH (08:37)
[2020-02-10] MEDS: INSULIN LISPRO 100 UNITS/ML SUBCUT SCH ×4 (08:37→21:42)
[2020-02-10] MEDS: METFORMIN HCL 500MG TABLET PO SCH ×2 (08:37→18:45)
[2020-02-10] MEDS: GUAIFENESIN 600MG ER TABLET PO SCH ×2 (09:55→21:41)
[2020-02-10] MEDS: INSULIN GLARGINE UD 100 UNITS/ML SYR SUBCUT SCH ×2 (11:01→21:43)
[2020-02-10 12:00] VITALS: BP 110/65
[2020-02-10] MEDS: ONDANSETRON HCL 4MG/2ML INJ IV PRN ×2 (13:14→19:08)
[2020-02-10] MEDS: ACETAMINOPHEN 325MG TABLET PO PRN (14:03)
[2020-02-10 16:00] VITALS: BP 106/70
[2020-02-10 20:00] VITALS: BP 130/90
[2020-02-11] VITALS (7 sets, daily range): BP systolic 104–127; BP diastolic 67–84
[2020-02-11] MEDS: BENZONATATE 100MG CAPSULE PO SCH ×3 (02:55→18:28)
[2020-02-11] MEDS: ALBUTEROL 6.7GM HFA INHALER ORI SCH ×3 (05:30→18:28)
[2020-02-11] MEDS: SODIUM CHLORIDE 0.9% INJ 3ML FLUSH IVF SCH ×3 (06:00→22:00)
[2020-02-11] MEDS: BLOOD SUGAR DIAGNOSTIC STRIP TEST SCH ×4 (07:40→20:31)
[2020-02-11] MEDS: INSULIN LISPRO 100 UNITS/ML SUBCUT SCH ×4 (07:51→20:31)
[2020-02-11] MEDS: METFORMIN HCL 500MG TABLET PO SCH ×2 (09:11→18:28)
[2020-02-11] MEDS: ZINC SULFATE 220 MG ( 50 ) CAPSULE PO SCH (09:11)
[2020-02-11] MEDS: ENOXAPARIN 80MG/0.8ML SYR SUBCUT SCH ×3 (09:11→21:00)
[2020-02-11] MEDS: GUAIFENESIN 600MG ER TABLET PO SCH ×2 (09:11→20:30)
[2020-02-11] MEDS: INSULIN GLARGINE UD 100 UNITS/ML SYR SUBCUT SCH ×2 (12:11→22:00)
[2020-02-12] VITALS: BP 116/70
[2020-02-12] MEDS: BENZONATATE 100MG CAPSULE PO SCH (02:00)
[2020-02-12 04:00] VITALS: BP 96/65
[2020-02-12] MEDS: SODIUM CHLORIDE 0.9% INJ 3ML FLUSH IVF SCH (05:55)
[2020-02-12] MEDS: ALBUTEROL 6.7GM HFA INHALER ORI SCH ×2 (05:55)
[2020-02-12] MEDS: INSULIN LISPRO 100 UNITS/ML SUBCUT SCH (08:10)
[2020-02-12] MEDS: BLOOD SUGAR DIAGNOSTIC STRIP TEST SCH (08:17)
[2020-02-12] MEDS: ENOXAPARIN 80MG/0.8ML SYR SUBCUT SCH (08:18)
[2020-02-12] MEDS: GUAIFENESIN 600MG ER TABLET PO SCH (08:18)
[2020-02-12] MEDS: METFORMIN HCL 500MG TABLET PO SCH (08:19)
[2020-02-12] MEDS: ZINC SULFATE 220 MG ( 50 ) CAPSULE PO SCH (08:19)
== END 2020-02-12 09:07 | disposition home or self-care (01) | DRG 720 ==
LOC: ER 20:38 → 7WST 01-29 03:27 → EDBEDREQSVC 01-29 03:30 → EDBEDREQ 01-29 03:30 → EDBEDREQDT 01-29 03:30 → EDBEDREQTM 01-29 03:30 → ENRESERV 01-29 07:36 → 7WST 02-04 14:24
PROVIDERS: ADMIT Internal Medicine; ATTEND Internal Medicine
DX: A41.89 Other specified sepsis (principal); U07.1 COVID-19; J96.01 Acute respiratory failure with hypoxia; E11.9 Type 2 diabetes mellitus without complications; E66.9 Obesity, unspecified; D72.810 Lymphocytopenia; B97.89 Other viral agents as the cause of diseases classified elsewhere; J12.89 Other viral pneumonia; J06.9 Acute upper respiratory infection, unspecified; E87.6 Hypokalemia; Z83.3 Family history of diabetes mellitus; Z68.29 Body mass index [BMI] 29.0-29.9, adult; Z79.4 Long term (current) use of insulin
CPT/HCPCS: 36415; 36600; 71045; 80048; 80053; 81003; 82375; 82550; 82553; 82728; 82805; 82962; 83036; 83605; 83615; 83735; 83880; 84145; 84443; 84484; 84703; 85025; 85379; 86140; 87635; 87804; 93005; 94640; 99291; J0456; J0780; J1200; J1650; J1815; J1885; J2405; J2543; J3370; J7060

== ENCOUNTER 2021-08-06 00:01 | Emergency (ER) | payer OTHER ==
[~2021-08-06] VITALS: Ht 147.3 cm; Wt 73.0 kg
[~2021-08-06 00:01] MED LIST: CEPH500C2 MT; IBUP-2028 MT
[2021-08-06 00:32] VITALS: BP 130/88
[2021-08-06 01:44] LABS: CLARITY URINE CLEAR (CLEAR); COLOR URINE YELLOW (YELLOW); KETONES URINE NEGATIVE (NEGATIVE); LEUKOCYTE ESTERASE URINE NEGATIVE (NEGATIVE); NITRITE URINE NEGATIVE (NEGATIVE); OCCULT BLOOD URINE NEGATIVE (NEGATIVE); PROTEIN URINE NEGATIVE (NEGATIVE); SPECIFIC GRAVITY URINE 1.007 (1.005-1.030); UROBILINOGEN URINE 0.2 E.U./dL (0.2-1.0)
== END 2021-08-06 03:44 | disposition home or self-care (01) ==
LOC: ER 00:01
DX: N83.202 Unspecified ovarian cyst, left side (principal); E11.9 Type 2 diabetes mellitus without complications; I10 Essential (primary) hypertension; E78.00 Pure hypercholesterolemia, unspecified
CPT/HCPCS: 74176; 81003; 81025; 99284